=== PATIENT | male | born 1955 | race Caucasian/White ===

== ENCOUNTER 2018-09-01 16:20 | Inpatient (IN) | payer OTHER ==
[~2018-09-01] VITALS: Ht 175.3 cm; Wt 79.8 kg
[2018-09-01 16:59] LABS: BASOPHILS % (AUTO) 0.9 % (0.0-5.0); EOSINOPHILS % (AUTO) 1.5 % (0.0-8.0); LYMPHOCYTES % (AUTO) 8.5 % (21.0-51.0); MEAN CORPUSCULAR HEMOGLOBIN 18.6 pg (27.0-33.0); MEAN CORPUSCULAR HGB CONC 30.7 g/dL (32.0-36.0); MEAN CORPUSCULAR VOLUME 60.6 fL (79-99); MONOCYTES % (AUTO) 6.2 % (3.0-13.0); NEUTROPHILS % (AUTO) 82.9 % (40.0-77.0); PLATELET COUNT (AUTO) 599 K/uL (130-400); RED BLOOD CELL COUNT(AUTO) 3.29 MIL/uL (4.50-6.20); RED CELL DISTRIBUTION WIDTH 17.6 % (11.0-15.5); WHITE BLOOD COUNT (AUTO) 10.2 K/uL (4.8-10.8)
[2018-09-01 17:04] LABS: HEMATOCRIT 19.9 % (42-54)
[2018-09-01 17:14] LABS: CREATININE 1.2 mg/dL (0.5-1.5); POTASSIUM 3.9 mmol/L (3.5-5.1)
[2018-09-01 17:16] LABS: PARTIAL THROMBOPLASTIN TIME 28.3 SEC (26.3-35.5); PROTHROMBIN TIME 10.5 SEC (9.6-11.6)
[2018-09-01 17:17] LABS: ALBUMIN 2.9 g/dL (3.5-5.0); BILIRUBIN,TOTAL 0.2 mg/dL (0.2-1.0); TOTAL PROTEIN, SERUM 8.2 g/dL (6.0-8.3)
[2018-09-01] MEDS: SODIUM CHLORIDE 0.9% 1000ML 1,000 ML IV SCH (18:17)
[2018-09-01] MEDS ORDERED: ONDANSETRON HCL 4 MG/2 ML VIAL IV PRN (18:30)
[2018-09-01] MEDS ORDERED: NITROGLYCERIN 0.4 MG SL TAB SL PRN (18:30)
[2018-09-01] MEDS ORDERED: ACETAMINOPHEN 325 MG TAB PO PRN ×2 (18:30)
[2018-09-01] MEDS ORDERED: HYDRALAZINE HCL 20 MG/ML VIAL IV PRN (19:00)
[2018-09-01 19:23] LABS: % IRON SATURATION 2.5 % (30-44)
[2018-09-01] MEDS: METOPROLOL TARTRATE 25 MG TAB PO SCH (21:00)
[2018-09-01] MEDS: FAMOTIDINE 20MG TAB 20 MG TAB PO SCH (21:00)
[2018-09-01] MEDS ORDERED: METOPROLOL TARTRATE 25 MG TAB ONE ×2 (21:01→21:27)
[2018-09-01] MEDS ORDERED: ACETAMINOPHEN 325 MG TAB ONE (21:01)
[2018-09-01] MEDS ORDERED: FAMOTIDINE 20MG TAB 20 MG TAB ONE ×2 (21:01→21:26)
[2018-09-01] MEDS ORDERED: HYDRALAZINE HCL 20 MG/ML VIAL ONE (21:01)
[2018-09-01 21:51] LABS: APPEARANCE,URINE Clear (CLEAR); BILIRUBIN,URINE Negative (NEGATIVE); COLOR,URINE Yellow (YELLOW); GLUCOSE, URINE (UA) Negative (NEGATIVE); KETONES,URINE Negative (NEGATIVE); LEUKOCYTE ESTERASE ,URINE Negative (NEGATIVE); NITRATE,URINE Negative (NEGATIVE); OCCULT BLOOD,URINE Negative (NEGATIVE); PH,URINE 5.5 (5.0-8.0); PROTEIN,URINE Negative (NEGATIVE); UROBILINOGEN,URINE 0.2 mg/dL (0.2-1.0)
[2018-09-02] MEDS ORDERED: IBUPROFEN 400 MG TABLET ONE (02:32)
[2018-09-02] MEDS ORDERED: IBUPROFEN 200 MG TAB ONE (02:32)
[2018-09-02 05:30] VITALS: BP 162/98
[2018-09-02 06:06] LABS: HEMATOCRIT 26.1 % (42-54); MEAN CORPUSCULAR HEMOGLOBIN 21.1 pg (27.0-33.0); MEAN CORPUSCULAR HGB CONC 31.8 g/dL (32.0-36.0); MEAN CORPUSCULAR VOLUME 66.5 fL (79-99); PLATELET COUNT (AUTO) 587 K/uL (130-400); RED BLOOD CELL COUNT(AUTO) 3.92 MIL/uL (4.50-6.20); WHITE BLOOD COUNT (AUTO) 9.8 K/uL (4.8-10.8)
[2018-09-02 06:16] LABS: EOSINOPHILS % (MANUAL) 2 % (1-6); LYMPHOCYTES % (MANUAL) 13 % (22-44); MAN.DIFF COMMENT-IMPRESSION MANUAL DIFFERENTIAL; MONOCYTES % (MANUAL) 3 % (2-9); SEGMENTED NEUTROPHILS % 82 % (40-70)
[2018-09-02 06:17] LABS: PLATELET MORPHOLOGY COMMENT INCREASED
[2018-09-02 06:22] LABS: ALBUMIN 2.6 g/dL (3.5-5.0); BILIRUBIN,TOTAL 0.6 mg/dL (0.2-1.0); CREATININE 1.2 mg/dL (0.5-1.5); MAGNESIUM 1.9 mg/dL (1.80-2.40); TOTAL PROTEIN, SERUM 8.3 g/dL (6.0-8.3)
[2018-09-02 07:30] VITALS: BP 177/103
--- NOTE | 2018-09-02 08:15 | NUR ---
ASSESSMENT: RECEIVED RESTING IN BED IN HF, STATES FEELS SOB, RR 20 LUNG VIERA CTA. O2 ON AT 2 L PER N/C. EXPLAINED POC AND UNDERSTANDING VERBALIZED, CALL ALVAREZ AT HER SIDE.
[2018-09-02] MEDS: FAMOTIDINE 20MG TAB 20 MG TAB PO SCH ×2 (08:26→22:02)
[2018-09-02] MEDS: METOPROLOL TARTRATE 25 MG TAB PO SCH ×2 (08:26→22:02)
--- NOTE | 2018-09-02 11:50 | NUR ---
wound care: wound care nurses here and removed head dressing and dressing to left face,wound care nurse took pictures. Dr Greer assessing wounds and discussed poc with pt and pt's , Wound care nurses redressing with wet to dry gauzes. New orders per Dr Greer.
[2018-09-02 12:00] VITALS: BP 141/84
--- NOTE | 2018-09-02 12:00 | NUR ---
[facility] consult Patient assessed as ordered. 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 Dr. Spicer arrived during consult and assessed lesions as well. Serosanguinous drainage noted from right ear. Pictures and measurements taken. Wet to moist dressings applied to both lesions. Report given to patient's nurse, Griselda BOOTHE.
--- NOTE | 2018-09-02 12:30 | NUR ---
DR. ALFRED HERE NOW, WAS ABLE TO SEE WOUNDS. ORDERS GIVEN AND ENTERED.
--- NOTE | 2018-09-02 12:50 | NUR ---
STOOL: HAD LG BROWN HARD BM, SAMPLE COLLECTED AND SEND TO LAB.
--- NOTE | 2018-09-02 12:56 | NUR ---
CONSULT: DR BEYER'S PA MOHINDER NOTIFIED OF CONSULT.
[2018-09-02] MEDS ORDERED: GADODIAMIDE 10 MMOL/20 ML VIAL IV ONE (13:33)
[2018-09-02] MEDS: HYDROCODONE/ACETAMINOPHEN 5/325 MG TAB PO PRN ×3 (13:45→22:06)
[2018-09-02] MEDS: SODIUM CHLORIDE 0.9% 1000ML 1,000 ML IV SCH (14:17)
--- NOTE | 2018-09-02 15:00 | NUR ---
MRI: PT TAKEN TO MRI VIA W/C.
[2018-09-02] MEDS ORDERED: IOHEXOL-350 50ML VIAL IV ONE (15:31)
[2018-09-02 16:00] VITALS: BP 146/85
--- NOTE | 2018-09-02 16:06 | NUR ---
TESTS: BACK FROM HAVING MRI. MADE COMFORTABLE IN BED. CALL ALVAREZ AT HER SIDE.
--- NOTE | 2018-09-02 17:07 | NUR ---
DR. BEYER IN TO SEE PT. PLAN TO BX. RT. SIDE FACE/EAR MASS ON Wednesday.
--- NOTE | 2018-09-02 18:40 | NUR ---
RT AND LEFT HEAD OPEN WOUND: REMOVED DRESSING AND WET TO DRY DRESSING APPLIED AND WRAPPED WITH KERLIX, VAL WELL.
--- NOTE | 2018-09-02 19:25 | NUR ---
JAMES SALGADO MET W PT AND SPOUSE, ENG SPEAKING, AAOX3, INDP OF ADLS, NO DME, NO O2, HH, PROVIDER; WITH MASSIVE MALIGNANCY TO FACE AND HEAD. OUTCOME GRIM PEINDG BIOPSY. SENT VA INFO TO REGISTRATION AND TAGGED CHART INCLUDING TELLING THE SURGEON DELMA Addendum: 09/02/18 at 1927 by LENNIE CHAPA RN CM Amended: Links added.
[2018-09-02 20:00] VITALS: BP 134/87
[2018-09-03] VITALS: BP 152/89
[2018-09-03 04:00] VITALS: BP 143/88
[2018-09-03 04:17] LABS: BASOPHILS % (AUTO) 0.6 % (0.0-5.0); EOSINOPHILS % (AUTO) 1.9 % (0.0-8.0); HEMATOCRIT 24.6 % (42-54); LYMPHOCYTES % (AUTO) 12.6 % (21.0-51.0); MEAN CORPUSCULAR HEMOGLOBIN 21.3 pg (27.0-33.0); MEAN CORPUSCULAR VOLUME 66.4 fL (79-99); MONOCYTES % (AUTO) 10.2 % (3.0-13.0); NEUTROPHILS % (AUTO) 74.7 % (40.0-77.0); PLATELET COUNT (AUTO) 498 K/uL (130-400); RED CELL DISTRIBUTION WIDTH 24.3 % (11.0-15.5); WHITE BLOOD COUNT (AUTO) 8.2 K/uL (4.8-10.8)
[2018-09-03 04:32] LABS: CREATININE 1.1 mg/dL (0.5-1.5); POTASSIUM 4.1 mmol/L (3.5-5.1)
--- NOTE | 2018-09-03 06:00 | NUR ---
DRESSING CHANGE Removed old dressing to right and left wounds on head. Flushed with ns, base of wounds are pink with areas of active bleeding with some drainage. Mild odor noted. Applied ns soaked gauze to wounds, abdominal pad, wrapped with kerlix and secured with tape.
[2018-09-03] MEDS: HYDROCODONE/ACETAMINOPHEN 5/325 MG TAB PO PRN ×3 (06:53→23:34)
[2018-09-03 08:00] VITALS: BP 131/85
[2018-09-03] MEDS: METOPROLOL TARTRATE 25 MG TAB PO SCH ×2 (09:02→23:32)
[2018-09-03] MEDS: FAMOTIDINE 20MG TAB 20 MG TAB PO SCH ×2 (09:02→23:32)
[2018-09-03] MEDS: SODIUM CHLORIDE 0.9% 1000ML 1,000 ML IV SCH ×2 (09:59→23:35)
[2018-09-03 11:57] VITALS: BP 131/74
[2018-09-03 16:00] VITALS: BP 130/78
[2018-09-03 20:18] VITALS: BP 143/88
[2018-09-04] VITALS (7 sets, daily range): BP systolic 130–158; BP diastolic 78–91
[2018-09-04 04:28] LABS: BASOPHILS % (AUTO) 0.7 % (0.0-5.0); EOSINOPHILS % (AUTO) 2.2 % (0.0-8.0); HEMATOCRIT 22.6 % (42-54); LYMPHOCYTES % (AUTO) 16.1 % (21.0-51.0); MEAN CORPUSCULAR HGB CONC 31.8 g/dL (32.0-36.0); MEAN CORPUSCULAR VOLUME 65.9 fL (79-99); MONOCYTES % (AUTO) 12.7 % (3.0-13.0); NEUTROPHILS % (AUTO) 68.3 % (40.0-77.0); PLATELET COUNT (AUTO) 453 K/uL (130-400); RED BLOOD CELL COUNT(AUTO) 3.43 MIL/uL (4.50-6.20); RED CELL DISTRIBUTION WIDTH 24.5 % (11.0-15.5); WHITE BLOOD COUNT (AUTO) 7.8 K/uL (4.8-10.8)
[2018-09-04 04:30] LABS: CREATININE 1.1 mg/dL (0.5-1.5); POTASSIUM 3.8 mmol/L (3.5-5.1)
--- NOTE | 2018-09-04 06:29 | NUR ---
DRESSING CHANGE COMPLETED
--- NOTE | 2018-09-04 09:45 | NUR ---
Notified Barbara CAPUTO of Wound culture results and sensitivity.
[2018-09-04] MEDS: FAMOTIDINE 20MG TAB 20 MG TAB PO SCH ×2 (09:46→20:42)
[2018-09-04] MEDS: HYDROCODONE/ACETAMINOPHEN 5/325 MG TAB PO PRN ×3 (09:47→18:05)
[2018-09-04] MEDS: METOPROLOL TARTRATE 25 MG TAB PO SCH ×2 (09:48→20:42)
[2018-09-04] MEDS: ERYTHROMYCIN BASE 500 MG TABLET PO SCH ×3 (12:26→20:42)
[2018-09-04] MEDS: SODIUM CHLORIDE 0.9% 1000ML 1,000 ML IV SCH ×2 (15:18→16:17)
--- NOTE | 2018-09-04 17:30 | NUR ---
dressing change Flushed with ns, base of wounds are pink with areas of active bleeding with some drainage. Mild odor noted. Applied ns soaked gauze to wounds, abdominal pad, wrapped with kerlix and secured with tape.
--- NOTE | 2018-09-04 23:31 | NUR ---
AWAKE Pt awake,watching tv.Denies pain or discomfort.Npo after midnight for biopsy in am.
[2018-09-05] VITALS (23 sets, daily range): BP systolic 120–170; BP diastolic 71–102
[2018-09-05] MEDS: SODIUM CHLORIDE 0.9% 1000ML 1,000 ML IV SCH (00:53)
[2018-09-05] MEDS: ERYTHROMYCIN BASE 500 MG TABLET PO SCH ×2 (03:45→09:29)
[2018-09-05 04:23] LABS: BASOPHILS % (AUTO) 0.5 % (0.0-5.0); EOSINOPHILS % (AUTO) 1.4 % (0.0-8.0); HEMATOCRIT 23.4 % (42-54); LYMPHOCYTES % (AUTO) 9.3 % (21.0-51.0); MEAN CORPUSCULAR HEMOGLOBIN 21.4 pg (27.0-33.0); MEAN CORPUSCULAR VOLUME 66.7 fL (79-99); MONOCYTES % (AUTO) 11.5 % (3.0-13.0); NEUTROPHILS % (AUTO) 77.3 % (40.0-77.0); PLATELET COUNT (AUTO) 420 K/uL (130-400); RED BLOOD CELL COUNT(AUTO) 3.51 MIL/uL (4.50-6.20); WHITE BLOOD COUNT (AUTO) 8.4 K/uL (4.8-10.8)
[2018-09-05 04:29] LABS: POTASSIUM 4.2 mmol/L (3.5-5.1)
[2018-09-05] MEDS: METOPROLOL TARTRATE 25 MG TAB PO SCH (05:59)
[2018-09-05] MEDS ORDERED: LACTATED RINGERS 1000ML 1,000 ML IV ONE (06:11)
--- NOTE | 2018-09-05 06:13 | NUR ---
OR Pt taken to OR via bed accompanied per OR staff.Pt not in distress.Lopressor given with small sip of water.
[2018-09-05] MEDS ORDERED: PROPOFOL 10 MG/ML 20ML VIAL IV ONE (06:26)
[2018-09-05] MEDS ORDERED: LIDOCAINE PF 2% 5ML ABBOJECT ONE (06:26)
[2018-09-05] MEDS ORDERED: ROCURONIUM 10MG/1ML SYR 10 MG/ML ML ONE (06:26)
[2018-09-05] MEDS ORDERED: MIDAZOLAM HCL 1 MG/ML 2ML VIAL ONE (06:26)
[2018-09-05] MEDS ORDERED: FENTANYL CITRATE PF 50 MCG/1 ML 2ML VIAL ONE (06:27)
[2018-09-05] MEDS ORDERED: CEFAZOLIN SODIUM 1 GM VIAL ONE (06:49)
[2018-09-05] MEDS: FAMOTIDINE 20MG TAB 20 MG TAB PO SCH (09:23)
[2018-09-05] MEDS: HYDROCODONE/ACETAMINOPHEN 5/325 MG TAB PO PRN (09:24)
[2018-09-05] MEDS ORDERED: SULF1TAB42 PO (14:50)
[2018-09-05] MEDS ORDERED: TYL3 PO (15:36)
== END 2018-09-05 17:31 | disposition home or self-care (01) | DRG 607 ==
LOC: EDH 16:20 → EDHIP 18:20 → 4CH 09-02 05:07
PROVIDERS: ADMIT Internal Medicine; ATTEND Internal Medicine
PROC: 30233N1 Transfusion of Nonautologous Red Blood Cells into Peripheral Vein, Percutaneous Approach (ICD-10-PCS; 2018-09-05)
PROC: 0HB0XZX Excision of Scalp Skin, External Approach, Diagnostic (ICD-10-PCS; principal; 2018-09-05 06:30)
DX: C44.310 Basal cell carcinoma of skin of unspecified parts of face (principal); E44.0 Moderate protein-calorie malnutrition; D64.9 Anemia, unspecified; I10 Essential (primary) hypertension; I49.3 Ventricular premature depolarization; R22.0 Localized swelling, mass and lump, head; B95.61 Methicillin susceptible Staphylococcus aureus infection as the cause of diseases classified elsewhere; M89.58 Osteolysis, other site; Z88.7 Allergy status to serum and vaccine; Z91.018 Allergy to other foods; Z85.828 Personal history of other malignant neoplasm of skin; Z80.8 Family history of malignant neoplasm of other organs or systems; Z81.1 Family history of alcohol abuse and dependence; Z83.6 Family history of other diseases of the respiratory system; Z68.26 Body mass index [BMI] 26.0-26.9, adult
CPT/HCPCS: 36415; 70450; 70553; 71046; 71260; 80048; 80053; 81003; 82270; 82728; 83540; 83550; 83735; 84443; 84484; 85025; 85610; 85651; 85730; 86140; 86850; 86900; 86901; 86922; 87040; 87070; 87076; 87077; 87088; 87186; 87205; 88307; 93005; A9579; G0378; J0360; J0690; J2001; J2250; J2704; J3010; J7030; J7120; P9016; Q9967